=== PATIENT | female | born 2005 | race Caucasian/White ===

== ENCOUNTER 2024-10-29 16:54 | Emergency (ER) | payer OTHER, SELFPAY ==
--- NOTE | 2024-10-29 | ECG_ITS ---
Test Reason : SYNCOPE Blood Pressure : */* mmHG Vent. Rate : 111 BPM Atrial Rate : 111 BPM P-R Int : 98 ms QRS Dur : 74 ms QT Int : 308 ms P-R-T Axes : 53 45 23 degrees QTcB Int : 418 ms Sinus tachycardia with short TX Nonspecific ST and T wave abnormality Abnormal ECG No previous ECGs available Referred By: Generic ED Physician Electronically Signed By: CARLOS BROWN MD
[2024-10-29 17:01] VITALS: BP 108/72; PULSE 114; O2SAT 100
[2024-10-29 17:07] VITALS: BP 116/63; PULSE 115; RESP 15; TEMP 38; O2SAT 98; BMI 23.2
--- NOTE | 2024-10-29 17:16 | ED.FEVER ---
HPI - Fever General Chief Complaint: Syncope Stated Complaint: syncopal episode at urgent care, throat pain Time Seen by Provider: 10/29/24 17:15 Source: patient Mode of arrival: ambulatory Limitations: no limitations History of Present Illness ED Provider: Dr. Jonatan Tyler HPI Narrative: 18-year-old female who presents emergency department for evaluation of 2 days of throat pain, fever and a syncopal episode that occurred an urgent care clinic. Patient states she has large tonsils but that has not had a tonsil infection or strep throat in over 5 years. She states that yesterday she felt as if there was food stuck in her left tonsil and she rubbed her tonsil with the finger but did not find any food particles in her tonsil. She states this morning she woke up with a sore throat, body aches, fatigue, hot and cold chills. She noted that her left tonsil was white and red. She went to an urgent care clinic and she states that while she was checking and she felt very cold and then passed out. She states that she had a rapid strep test, COVID-19 test amount of tests which were all negative. Given her syncopal episode she was sent to the emergency department for evaluation. She states that over the past 2 days she has had no appetite and has had very little food or fluid to drink. Here in the emergency department the patient's temperature was a 100.4 degrees F. Related Data Previous Rx's ?Medication ?Instructions ?Recorded amoxicillin 400 mg-potassium 10 ml PO Q12H 10 days #200 mL 10/29/24 clavulanate 57 mg/5 mL oral suspension Allergies Allergy/AdvReac Type Severity Reaction Status Date / Time naproxen Allergy Swelling Verified 10/29/24 17:10 Review of Systems Review of Systems: Yes all other systems are reviewed and are negative FOR[facility]LY [facility], [facility] Past Medical History FOR[facility] Narrative: Social history: She denies tobacco, alcohol and drug use Physical Exam Vital Signs: Vital Signs: Last Vital Signs Temp 100.4 F 10/29/24 17:07 Pulse 115 H 10/29/24 17:07 Resp 15 10/29/24 17:07 BP 116/63 10/29/24 17:07 Pulse Ox 98 10/29/24 17:07 O2 Del Method Room Air 10/29/24 17:07 BMI result Body Mass Index 23.2 Vital signs revealed elevated temperature of a 100.4 degrees F elevated heart rate of 115 otherwise unremarkable. Exam: General: Awake, alert in no distress Head: Normocephalic, atraumatic EENT: PERRL, Lids normal, sclera normal, conjunctiva normal, nose normal , ears normal, mouth: Moist membranes, the patient does have enlarged symmetric tonsils, increased erythema on the left tonsil compared to the right, exudative band over the left tonsil. There is no midline shift of the uvula, she has no trismus Neck: Supple, tender left jugulodigastric adenopathy Lung: breath sounds symmetric, no wheezing, rales or rhonchi Chest: symmetric movement, nontender Heart: regular rate and rhythm, normal S1, S2 no murmurs or rubs Abdomen: soft, non-tender, nondistended, normal bowel sounds Back: no vertebral tenderness, no CVAT Extremities: no deformities, moves all extremities symmetrically Neuro: Awake, alert, oriented, normal speech, cranial nerves intact, moves all extremities symmetrically Psych: Pleasant, cooperative Medical Decision Making Medical Decision Making MDM Narrative: 18-year-old female who presents emergency department for evaluation of 2 days of throat pain, fever and a syncopal episode that occurred an urgent care clinic. Patient states she has large tonsils but that has not had a tonsil infection or strep throat in over 5 years. She states that yesterday she felt as if there was food stuck in her left tonsil and she rubbed her tonsil with the finger but did not find any food particles in her tonsil. She states this morning she woke up with a sore throat, body aches, fatigue, hot and cold chills. She noted that her left tonsil was white and red. She went to an urgent care clinic and she states that while she was checking and she felt very cold and then passed out. She states that she had a rapid strep test, COVID-19 test amount of tests which were all negative. Given her syncopal episode she was sent to the emergency department for evaluation. She states that over the past 2 days she has had no appetite and has had very little food or fluid to drink. Here in the emergency department the patient's temperature was a 100.4 degrees F. patient does have erythematous left tonsil with an exudative band on the tonsil. No shift of the uvula, no trismus. She does have tender to left-sided jugulodigastric adenopathy. Exam is otherwise unremarkable. Differential diagnosis: ?Includes but is not limited to arrhythmia, vasovagal syncope, anemia, electrolyte abnormalities, tonsillitis, tonsillar abscess, volume depletion, dehydration Course: 17:32 My independent interpretation patient's laboratory evaluation: WBC elevated 13,200. Left shift with 86 bands, 5 lymphocytes. Chloride elevated 110, bicarb low 21, BUN low 7. LFTs were normal. Twelve EKG done on 10/29/2024 at 17:15 hours is as follows: Sinus tachycardia with a rate of 111, normal IN interval, QRS duration QTC interval, inverted T-waves in lead 3, V1, V2 and V3, no ST segment elevation, no ST segment depression, no PACs, no PVCs. These T-wave abnormalities are nonspecific and are not related to the patient's syncopal episode. At this time I believe the patient's syncope was a vasovagal syncope secondary to volume depletion and dehydration. Patient's symptoms and exam are consistent with left-sided tonsillitis.I ordered normal saline IV x1 L, dexamethasone 10 mg IV, ceftriaxone 1 mg IV and liquid acetaminophen 960 mg orally. Patient's findings are consistent with a left-sided tonsillitis. 18:59 Discharge Plan Discharge Clinical Impression: Acute tonsillitis, Fever, Vasovagal syncope Patient Disposition: Home, Self-Care Instructions: Tonsillitis (ED) Additional Instructions: Your blood work was unremarkable except for an elevated white blood cell count which goes along with a an infection. Your EKG was normal. You had a vasovagal syncopal event (you fainted). This has most likely caused by your infection, fever and not eating and drinking over the past 24 hours. You were treated here in the emergency department with normal saline IV x1 L and liquid Tylenol 960 mg. You were also treated with dexamethasone 10 mg IV. This is a noninflammatory steroids that will last 3 days. This will help reduce the inflammation in your tonsil and help with the pain. You also received ceftriaxone 1 g IV. This has a broad-spectrum antibiotic that will last for 24 hours. I am prescribing the antibiotic Augmentin Augmentin (amoxicillin/clavulanate) 400 mg/57 mg per 5 mL, take 10 mL every 12 hours for 7 days. You can take liquid Tylenol (160 mg per 5 mL) 30 mL every 4-6 hours as needed for pain or fever. Or you can take extra-strength Tylenol 500 mg pills, 2 pills every 4-6 hours as needed for pain or fever. Place 1 tsp of salt in 8 oz of warm water and gargle the glass of water. Do this 3 times a day to see if this helps reduce your pain. Follow-up with your doctor in 2 days. Please return to the emergency department if your symptoms get worse or if you develop any symptoms that are concerning to you. Prescriptions: New amoxicillin-pot clavulanate 400-57 mg/5 mL suspension for reconstitution 10 ml PO Q12H 10 Days Qty: 200 0RF
[2024-10-29 17:24] VITALS: BP 126/69; PULSE 115; RESP 16; TEMP 38
[2024-10-29 18:03] LABS: MANUAL DIFF FLAG NO
[2024-10-29] MEDS: Acetaminophen Oral Liquid 650 MG/20.3 ML SOLUTION 960 MG PO (18:08)
[2024-10-29 18:14] LABS: Hematocrit 36.3 % (37.0-47.0); Hemoglobin 12.4 g/dl (12.0-16.0); Imm Gran Abs Auto 0.05 X10*3/uL (0.00-0.03); Imm Gran Pct Auto 0.4 % (0.0-0.4); Lymphocytes Absolute Auto 0.7 X10*3/uL (1.2-4.9); Mean Corpuscular HGB Conc 34.2 g/dl (31.0-35.0); Mean Corpuscular Hemoglobin 29.1 pg (27.0-33.0); Mean Corpuscular Volume 85.2 fL (80.0-98.0); NRBC Abs Auto 0.000 X10*3/uL (0.0-0.012); NRBC Pct Auto 0.0 /100WBC (0.0-0.2); Platelet Count 175 X10*3/uL (160-400); Red Blood Count 4.26 X10*6/uL (4.20-5.50); UPreg QC Valid YES; White Blood Count 13.2 X10*3/uL (4.8-10.8)
[2024-10-29 18:30] VITALS: BP 104/62; PULSE 98; RESP 22; TEMP 37.9; O2SAT 98
[2024-10-29 18:34] LABS: Alanine Aminotransferase 9 U/L (0-31); Albumin Level 4.5 g/dL (3.5-5.0); Alkaline Phosphatase 56 U/L (39-117); Anion Gap 13 (12-20); Aspartate Amino Transferase 19 U/L (5-31); Blood Urea Nitrogen 7 mg/dL (9-16); Calcium 8.5 mg/dL (8.4-10.2); Carbon Dioxide 21 mmol/L (22-29); Chloride 110 mmol/L (96-108); Creatinine Clr Calc Pharmacy 82.7; Estimated Glomerular Filt Rate > 60; Potassium 4.0 mmol/L (3.3-5.1); Sodium 140 mmol/L (135-145); Total Protein 7.1 g/dL (6.5-8.0)
--- NOTE | 2024-10-29 19:11 | PC.NURSE ---
this rn assumed care of pt, pt sitting up in stretcher with no acute distress noted, fluids administering at this time
[2024-10-29 19:21] VITALS: BP 104/62; PULSE 98; RESP 20; TEMP 37.3; O2SAT 98
== END 2024-10-29 19:35 | disposition home or self-care (01) ==
LOC: HO.ED 19:26
PROVIDERS: Emergency Provider Emergency Medicine Emergency Medical Services; PCP Student in an Organized Health Care Education/Training Program
DX: J03.90 Acute tonsillitis, unspecified (principal); R55 Syncope and collapse; R50.9 Fever, unspecified; R53.83 Other fatigue
CPT/HCPCS: 36415; 80053; 81025; 85025; 93005; 96361; 96374; 96375; 99284; 99285; J0696; J1100

== ENCOUNTER → 2024-10-29 17:15 | Outpatient (BNV) | payer OTHER, SELFPAY | PROVIDERS: Emergency Provider Emergency Medicine Emergency Medical Services; PCP Student in an Organized Health Care Education/Training Program; Visit Provider Internal Medicine Cardiovascular Disease | DX: R00.0 Tachycardia, unspecified (principal) | CPT/HCPCS: 93010 ==